=== PATIENT | female | born 1980 | race Caucasian/White ===

== ENCOUNTER 2018-04-01 07:27 | Inpatient (IN) | payer BC ==
[~2018-04-01 07:27] MED LIST: PROPOFOL 1000 MG INJ
[2018-04-01] MEDS ORDERED: PROPOFOL 20 ML (09:35)
[2018-04-01] MEDS ORDERED: DEXAMETHASONE 4 MG/ML 1 ML INJ (09:35)
[2018-04-01] MEDS ORDERED: GLYCOPYRROLATE 0.4 MG INJ (09:35)
[2018-04-01] MEDS ORDERED: MIDAZOLAM 1 MG/ML 2 ML INJ (09:35)
[2018-04-01] MEDS ORDERED: ROCURONIUM 50 MG INJ (09:35)
[2018-04-01] MEDS ORDERED: ONDANSETRON 4 MG INJ (09:35)
[2018-04-01] MEDS ORDERED: CEFAZOLIN 1 GM INJ (09:35)
[2018-04-01] MEDS ORDERED: NEOSTIGMINE 3 MG/3 ML SYRINGE (09:35)
[2018-04-01] MEDS ORDERED: SUGAMMADEX SODIUM 200 MG/2 ML VIAL IV ×2 (10:00→13:03)
[2018-04-01] MEDS ORDERED: NALOXONE (0.4 MG/ML) INJ IV (10:30)
[2018-04-01] MEDS ORDERED: HYDROmorphONE 0.5 MG/0.5 ML SYG IV (10:30)
[2018-04-01] MEDS ORDERED: ACETAMINOPHEN 325 MG TAB PO (10:30)
[2018-04-01] MEDS ORDERED: HYDROCODONE/APAP (10/325) TAB PO (10:30)
[2018-04-01] MEDS ORDERED: ONDANSETRON 4 MG INJ IV (10:30)
[2018-04-01] MEDS ORDERED: CEPASTAT LOZENGE MT (10:30)
[2018-04-01] MEDS ORDERED: BISACODYL 10 MG SUPP PR (10:30)
[2018-04-01] MEDS ORDERED: AL HYDROX/MG HYDROX/SIMETH 30 ML CUP PO (10:30)
[2018-04-01] MEDS ORDERED: MIDAZOLAM 1 MG/ML 2 ML INJ IV (11:00)
[2018-04-01] MEDS ORDERED: hydrALAzine 20 MG INJ IV (11:00)
[2018-04-01] MEDS ORDERED: DIPHENHYDRAMINE 50 MG INJ IV (11:00)
[2018-04-01] MEDS ORDERED: FENTAnyl 50 MCG/ML VIAL IV ×2 (11:00)
[2018-04-01] MEDS ORDERED: LABETALOL HCL 20MG INJ IV (11:00)
[2018-04-01] MEDS ORDERED: MEPERIDINE 25 MG INJ IV (11:00)
[2018-04-01] MEDS ORDERED: HYDROmorphONE 1 MG/5 ML IV SYRINGE IV ×3 (11:00)
[2018-04-01] MEDS ORDERED: ALBUTEROL 0.083% (NEB) 2.5 MG/3 ML AMP HHN (11:00)
[2018-04-01] MEDS ORDERED: IPRATROPIUM (NEB) 0.5 MG/2.5 ML AMP HHN (11:00)
[2018-04-01] MEDS ORDERED: EPHEDrine SULFATE 50 MG/5 ML SYG IV (11:00)
[2018-04-01] MEDS ORDERED: OXYCODONE/ACETAMINOPHEN (5/325) TAB PO ×2 (11:00)
[2018-04-01] MEDS ORDERED: TRIMETHOBENZAMIDE 100 MG/ML VIAL IM (11:00)
[2018-04-01] MEDS: HEPARIN 1000 UNITS/ML 10 ML INJ (11:27)
[2018-04-01] MEDS: THROMBIN 5000 UNIT VIAL (11:28)
[2018-04-01] MEDS: BUPIVACAINE 0.25%/EPI (SDV) 30 ML INJ (11:30)
[2018-04-01] MEDS ORDERED: CEFAZOLIN 1 GM/50 ML (PMX) 50 ML IVPB (12:00)
[2018-04-01] MEDS: CA CHLORIDE 10% 10 ML SYRINGE (12:31)
[2018-04-01] MEDS: FENTAnyl 50 MCG/ML VIAL (12:31)
[2018-04-01] MEDS: POLYMYXIN/BACITRACIN 1L IRRIG (12:32)
[2018-04-01] MEDS: SURGIFOAM POWDER 1 GM KIT (12:32)
[2018-04-01] MEDS ORDERED: METOCLOPRAMIDE 10 MG INJ (12:48)
[2018-04-01] MEDS: HYDROmorphONE 0.2 MG/ML PCA IV ×2 (13:16→22:47)
[2018-04-01] MEDS: FENTAnyl 50 MCG/ML VIAL IV (13:39)
[2018-04-01] MEDS: ONDANSETRON 4 MG INJ IV (13:39)
[2018-04-01] MEDS: D5W-0.45 NACL + KCL 20 MEQ 1,000 ML IV (14:27)
[2018-04-01] MEDS: CEFAZOLIN 1 GM/50 ML (PMX) 50 ML IVPB (17:49)
[2018-04-01] MEDS: DOCUSATE SODIUM 100 MG CAP PO (20:39)
[2018-04-01] MEDS: DIPHENHYDRAMINE 50 MG INJ IV (20:40)
[2018-04-02] MEDS: CEFAZOLIN 1 GM/50 ML (PMX) 50 ML IVPB ×2 (02:01→10:31)
[2018-04-02 05:22] LABS: ADD MAN DIFF? NO
[2018-04-02 05:32] LABS: BASOPHILS % 0.2 % (0.0-2.0); HEMATOCRIT 38.7 % (37.0-47.0); HEMOGLOBIN 12.9 g/dl (12.0-16.0); LYMPHOCYTES # 1.5 10^3/ul (0.8-2.9); LYMPHOCYTES % 8.7 % (15.0-51.0); MEAN CORPUSCULAR HGB CONC 33.3 g/dl (32.0-37.0); MEAN PLATELET VOLUME 10.4 fl (7.4-10.4); MONOCYTE # 1.3 10^3/ul (0.3-0.9); MONOCYTES % 7.5 % (0.0-11.0); NEUTROPHIL # 14.1 10^3/ul (1.6-7.5); PLATELET COUNT 235 10^3/UL (140-415); RED CELL DISTRIBUTION WIDTH 12.8 % (11.5-14.5)
[2018-04-02 06:29] LABS: ANION GAP 12 (8-16); BLOOD UREA NITROGEN 7 mg/dl (7-20); CARBON DIOXIDE 26 mmol/L (21-31); CHLORIDE 106 mmol/L (97-110); CREATININE 0.66 mg/dl (0.44-1.00); GLUCOSE 115 mg/dl (70-220); MAGNESIUM 1.9 mg/dl (1.7-2.5); POTASSIUM 4.4 mmol/L (3.5-5.1); SODIUM 140 mmol/L (135-144)
[2018-04-02] MEDS: DIPHENHYDRAMINE 50 MG INJ IV (07:35)
[2018-04-02] MEDS: DOCUSATE SODIUM 100 MG CAP PO (09:05)
[2018-04-02] MEDS: HYDROCODONE/APAP (10/325) TAB PO ×2 (09:05→13:15)
[2018-04-02] MEDS: CYCLOBENZAPRINE 10 MG TAB PO (10:32)
== END 2018-04-02 13:50 | disposition home or self-care (01) | DRG 520 ==
LOC: REC 07:27 → MS1 14:16
PROC: 0SB20ZZ Excision of Lumbar Vertebral Disc, Open Approach (ICD-10-PCS; principal; 2018-04-01 10:30)
PROC: 01NB0ZZ Release Lumbar Nerve, Open Approach (ICD-10-PCS; 2018-04-01 10:30)
DX: M47.816 Spondylosis without myelopathy or radiculopathy, lumbar region (principal); M51.16 Intervertebral disc disorders with radiculopathy, lumbar region; M53.2X6 Spinal instabilities, lumbar region
CPT/HCPCS: 72100; 80048; 83735; 84703; 85025; 86999; 97110; 97116; 97162